=== PATIENT | male | born 1980 | race Caucasian/White ===

== ENCOUNTER 2020-06-27 16:30 | Observation (INO) | payer MEDICAID, SELFPAY ==
[2020-06-27 16:31] VITALS: BP 133/88; PULSE 114; RESP 15; TEMP 36.8; O2SAT 100; BMI 20.7
--- NOTE | 2020-06-27 16:42 | ED.VIS.GEN ---
History of Present Illness Chief Complaint: Substance Abuse Detail of Chief Complaint: Heroin addiction Informant: Patient Onset: Month(s) Context: Sudden Onset Timing: Continuous Quality: Snorts heroin to manage rheumatoid arthritis pain Location: Not applicable Current Severity: - - Reports tremors, jitteriness and palpitations Maximum Severity: Severe Worsened by: Abstinence Relieved by: Snorting heroin Associated Symptoms: Nausea Narrative: Patient is a 40-year-old male who is present unemployed. He did work for a company in [facility] [place]. He states he lost his job. He was on medication for his rheumatoid arthritis and osteoarthritis. 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 To manage the pain he began snorting heroin. He has not had any alcoholic beverage in years. He does smoke on a daily basis. He has an melissa wrap on his distal right forearm due to swelling. He denies fever, chills or night sweats. He denies ocular, visual or auditory symptoms. He denies cardiac or respiratory symptoms other than the palpitations. He does report nausea without vomiting diarrhea. He does pick at his skin. He last used at 12 noon. Prior similar symptoms: Yes Recent Illness/Hospitalization: No - Past Medical History (1) History of rheumatoid arthritis Status: Acute (2) History of osteoarthritis Status: Acute (3) Heroin use Status: Acute Past Medical History - Allergies and Home Meds Allergies/Adverse Reactions: Allergies No Known Allergies Allergy (Verified 06/27/20 16:31) Primary Care Physician: E[facility] Doctor,Out of [NON-STAFF] - Prior records reviewed: No Surgical History: no surgical history Lives: Alone, Homeless Smoking Status: Heavy Smoker (>10/day) Alcohol: Sober Drugs: Heroin Review of Systems General: Denies: Chills, Fever, Sweats Eyes: Denies: Visual changes - bilaterally, Diplopia ENT: Denies: Rhinorrhea, Sore throat Cardiovascular: Reports: Palpitations. Denies: Chest pain, Heart racing, -, - Respiratory: Denies: Dyspnea, Cough, Dyspnea on exertion Gastrointestinal: Reports: Nausea. Denies: Abdominal pain, Vomiting, Diarrhea, Constipation, Melena, Hematochezia, -, - Genitourinary: Denies: Dysuria, Hematuria, Frequency Musculoskeletal: Denies: Back pain, Extremity Pain Skin: Reports: Wounds. Denies: Rash Neurological: Denies: Headache, Weakness, Numbness Hematologic: Denies: Easy bruising, Easy bleeding Physical Exam Vital Signs/Narrative: Vital Signs Temp Pulse Resp BP Pulse Ox 06/27/20 16:31 98.3 F 114 H 15 133/88 H 100 Inital Vital Signs reviewed: Yes General: Well nourished, Well developed, - - Patient appears anxious Head: Normocephalic, Atraumatic Eyes: Perrl, EOMI. Negative for: Pale conjunctiva, Scleral icterus Neck: Supple, Nontender, No lymphadenopathy, No JVD Cardiovascular: Regular rhythm, No murmurs, Normal S1, Normal S2, Tachycardia Respiratory: No distress, CTA bilaterally, Chest nontender Abdomen: Soft, Nontender, Nondistended, Normal bowel sounds Back: Nontender, Normal Inspection Extremities: Nontender, No edema Skin: Normal color, - - Skin lesions due to picking and itching. Neurological: Alert, Oriented x3, Cranial nerves II-XII grossly intact, Normal Strength, Normal Sensation Psychological: Normal affect Diagnostic/Tx/Re-eval Laboratory Results 06/27/20 06/27/20 17:00 17:00 WBC 5.5 RBC 4.63 Hgb 13.7 Hct 39.0 L MCV 84.2 MCH 29.6 MCHC 35.1 RDW Std Deviation 41.1 RDW Coeff of Stephan 13.3 Plt Count 206 MPV 8.7 Immature Gran % (Auto) 0.200 Neut % (Auto) 55.8 Lymph % (Auto) 36.1 [place] % (Auto) 7.2 Eos % (Auto) 0.2 Baso % (Auto) 0.5 Absolute Neuts (auto) 3.1 Absolute Lymphs (auto) 1.99 Nucleated RBC % 0 Sodium 141 Potassium 3.5 Chloride 106 Carbon Dioxide 31.0 Anion Gap 4 L BUN 12 Creatinine 1.19 Estim Creat Clear Calc 77.76 Est GFR (MDRD) Af Amer 87 Est GFR (MDRD) Non-Af 72 BUN/Creatinine Ratio 10.1 Glucose 100 Calcium 8.7 Total Bilirubin 0.50 AST 12 L ALT 16 Alkaline Phosphatase 75 Total Protein 6.8 Albumin 3.7 Globulin 3.1 Albumin/Globulin Ratio 1.2 Blood work is essentially unremarkable. Alcohol level and tox screen are pending at time of admission. - Rhythm Strip Rhythm Strip: Sinus Tach Rate: 110 - Medical Decision Making She was treated with Ativan for his anxiety. Appropriate blood work was obtained for admission to detox. He states he was in contact with a woman at [facility]. He misplaced her name and phone number. He was instructed to come to the emergency department. ED Disposition - Plan for ED Patient: Referrals: [facility] Doctor,Out of [NON-STAFF] -
[2020-06-27] MEDS: LORazepam 2 MG/ML Syringe 0.5 MG IV (17:18)
[2020-06-27 17:24] LABS: Absolute Lymphocyte Count 1.99 X10^3/uL (0.83-4.51); Absolute Neutrophil Count 3.1 X10^3/uL (2.0-7.7); Basophil# 0.03 X10^3/uL; Basophil% 0.5 % (0-1); Eosinophil# 0.01 X10^3/uL; Eosinophils% 0.2 % (0-5); Hemoglobin 13.7 g/dL (13.0-16.5); Lymphocyte # 1.99 X10^3/ul (4.0); Lymphocyte % 36.1 % (19-41); Mean Corp Hgb Conc 35.1 g/dL (32-36); Mean Corpuscular Hgb 29.6 pg (27.0-32.0); Mean Corpuscular Volume 84.2 fL (80-94); Mean Platelet Vol. 8.7 fl (6.2-12.0); Monocyte% 7.2 % (0-10); NRBC Flagged by Analyzer 0 % (0-5); Neutrophil # 3.08 X10^3/uL (2.7-7.7); Neutrophil % 55.8 % (47-70); Platelet Count 206 K/mm3 (150-450); RBC Distribution Width CV 13.3 % (11.6-14.6); RBC Distribution Width SD 41.1 fl (35.1-43.9); Red Blood Count 4.63 M/mm3 (4.6-6.2); White Blood Count 5.5 K/mm3 (4.4-11.0)
[2020-06-27 17:26] LABS: ALB/GLOB Ratio 1.2 RATIO (0.9-2.4); AST(SGOT) 12 U/L (15-37); Alanine Aminotransfer ALT/SGPT 16 U/L (16-61); Albumin, Serum 3.7 g/dL (3.2-5.0); Alkaline Phosphatase 75 U/L (45-117); Anion Gap 4 (5-15); BUN 12 mg/dL (7-18); BUN/Creat Ratio 10.1 RATIO (10-20); Calcium,Total 8.7 mg/dL (8.5-10.1); Chloride 106 mmol/L (98-107); Creatinine, Serum 1.19 mg/dL (0.70-1.30); EST Glomerular Filtration Rate 72 mL/min (>60); Est Glom Filt Rate - Afr Amer 87 mL/min (>60); Estimated Creatinine Clearance 77.76 ml/min; Globulin 3.1 g/dL (2.2-4.2); Glucose 100 mg/dL (74-106); Potassium 3.5 mmol/L (3.5-5.1); Protein, Total 6.8 g/dL (6.4-8.2); Sodium Level 141 mmol/L (136-145)
[2020-06-27 17:49] VITALS: BP 128/74; PULSE 101; RESP 18; TEMP 36.1; O2SAT 99
[2020-06-27 17:50] VITALS: BMI 20.7
--- NOTE | 2020-06-27 17:50 | HP.PCM_ITS ---
<Jaylen Alvarado PA - Last Filed: 06/27/20 17:50> Problem List (1) Opiate withdrawal Status: Acute (2) History of rheumatoid arthritis Status: Chronic History of Present Illness Date of Admission: 06/27/20 Chief Complaint: opiate withdrawal The patient is a 40 year old M with pmhx of rheumatoid arthritis who presents to the ER with opiate withdrawal and request for assistance with detox. The patient has been using heroin for about 1 year. He states he started using to help with pain control after he lost his job/medical coverage and could no longer see his RA doctor or get his prescription medications for RA. He states he snorts heroin approx 0.5 grams per day. Last use was about noon today. He occasionally uses meth to stay awake. He states he never has used IV as he is afraid of needles. No benzo or alcohol use. He smokes about 1 ppd. He plans to follow up with [facility] as an outpatient upon discharge. Current withdrawal symptoms include all over body aches, nauesa, loose stools, restlessness, runny eyes and nose. [] Past Medical History Past Medical History (Chronic Problems): Chronic Problems History of rheumatoid arthritis (Chronic) Allergies No Known Allergies Allergy (Verified 06/27/20 16:31) Home Medications: Ambulatory Orders Medication Instructions Recorded Cholecalciferol (Vitd3)/Vit K2 1 ea PO DAILY PRN PRN 06/27/20 [Dosoquin Tablet] Prednisone 10 mg PO DAILY 06/27/20 Sulindac 200 mg PO BID PRN PRN 06/27/20 Tofacitinib Citrate [Xeljanz] 5 mg PO BID 06/27/20 Surgical History: rotator cuff repair - right Psychiatric History: No pertinent psych hx Lives: Alone, Homeless Smoking Status: Current every day smoker Tobacco Use: Cigarettes Alcohol: None Drugs: Heroin Review of Systems Constitutional: Denies: Chills, Fever, Weight Change HEENT: Reports: - - runny eyes/nose.. Denies: Head Aches, Sinus Congestion, Sinus Drainage Cardiovascular: Denies: Chest Pain, Light Headedness, Palpitations Respiratory: Denies: Cough, Shortness of Breath, Shortness of breath at rest, Sputum production Gastrointestinal: Reports: Nausea, - - loose stools. Denies: Abdominal Pain, Vomiting Genitourinary: Denies: Dysuria, Frequency, Urgency Musculoskeletal: Reports: Joint Pain, Muscle pain. Denies: Joint swelling Skin: Denies: Lesions, Rash, Wounds Neurological: Denies: Numbness, Tingling, Focal weakness Psychiatric: Denies: Anxiety, Depression, Homicidal Ideations, Suicidal Ideations Hematologic/ Lymphatic: Denies: Easy Bruising, Easy Bleeding VTE Information - Inpt Only VTE Present on Admission: No VTE Mechan Device Prophylaxis: None VTE Pharm Prophylaxis ordered?: No Reason prophylaxis not ordered:: Procedure Not Indicated Patient Problems: Active and Suspected Problems Opiate withdrawal (Acute) - Physical Exam Vitals/I&O's: Vital Signs Temp Pulse Resp BP Pulse Ox 97 F L 101 H 18 128/74 H 99 06/27/20 17:49 06/27/20 17:49 06/27/20 17:49 06/27/20 17:49 06/27/20 17:49 Oxygen Delivery Method Room Air Weight: 148 lb 5.938 oz Body Mass Index (BMI) 20.7 General: Alert, Oriented x3, Cooperative, Lethargic HEENT: Atraumatic, PERRLA, EOMI, Normocephalic Neck: Supple, No JVD, Negative Carotid Bruits Lungs: Clear to auscultation, Normal air movement Cardiovascular: Regular rate, No murmurs Abdomen: Bowel Sounds Present, Soft, Non Tender Extremities: No edema, Capillary Refill Less than 3 Seconds Skin: No rashes, No breakdown Musculoskeletal: No Tenderness to Palpation of Joints or Extremities Neurological: Cranial nerves II-XII grossly intact Psych/Mental Status: Normal Affect, Appropriate, Alert and oriented to time, place, person, mood and affect Laboratory Results 06/27/20 17:00: WBC 5.5, RBC 4.63, Hgb 13.7, Hct 39.0 L, MCV 84.2, MCH 29.6, MCHC 35.1, RDW Std Deviation 41.1, RDW Coeff of Stephan 13.3, Plt Count 206, MPV 8.7, Immature Gran % (Auto) 0.200, Neut % (Auto) 55.8, Lymph % (Auto) 36.1, [place] % (Auto) 7.2, Eos % (Auto) 0.2, Baso % (Auto) 0.5, Absolute Neuts (auto) 3.1, Absolute Lymphs (auto) 1.99, Nucleated RBC % 0 06/27/20 17:00: Sodium 141, Potassium 3.5, Chloride 106, Carbon Dioxide 31.0, Anion Gap 4 L, BUN 12, Creatinine 1.19, Estim Creat Clear Calc 77.76, Est GFR (MDRD) Af Amer 87, Est GFR (MDRD) Non-Af 72, BUN/Creatinine Ratio 10.1, Glucose 100, Calcium 8.7, Total Bilirubin 0.50, AST 12 L, ALT 16, Alkaline Phosphatase 75, Total Protein 6.8, Albumin 3.7, Globulin 3.1, Albumin/Globulin Ratio 1.2 06/27/20 17:00: Ethyl Alcohol Pending Assessment/Plan All Active Problems History of osteoarthritis (Acute) Heroin use (Acute) Opiate withdrawal (Acute) 1. Heroin abuse with withdrawal - 0.5 g / day - snorts. occasional meth. denies etoh/benzos. Using approx 1 year for self medicating for pain 2/2 RA. Tox pending, EtOH level 8.0. Initiate subutex taper. He states he has been on subuxone in the past. 2. Nicotine abuse - 1 ppd smoker - nicotine patch ordered. 3. RA - not on any maintenance meds at this time. Needs PCP and probably referral to rheumatology however he states he has no medical coverage while he waits to be approved for disability. DVT ppx: early ambulation [facility] plannin referral - pt plans for outpatient follow up. This patient was seen by Jaylen Alvarado PA-C under the supervision of Doctor Barrett. <Kari Hyde - Last Filed: 06/27/20 19:32> History of Present Illness Date of Admission: 06/27/20 I agree with the above and the following is a refection of my independent history and PE. The patient is a 40 year old M with PMH of RA who has been off of his biologics 2/2 insurance issues and has been snorting heroin for about 1 year for pain mgt. He presents for detox. He uses about 1/2 gm daily but never uses IVD. His last use was today at noon and he is very sleepy upon my exam. He admits to 1 PPD tobacco abuse as well and would like a patch. 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 Past Medical History Allergies No Known Allergies Allergy (Verified 06/27/20 16:31) Lives: Alone, Homeless Smoking Status: Current every day smoker Tobacco Use: Cigarettes - 1 PPD Alcohol: None Drugs: Heroin - 0.5 gms/day--> snorts, never IVDU Review of Systems Constitutional: Reports: Chills, Weakness, Fatigue. Denies: Anorexia, Fever, Night Sweats, Malaise, Weight Change HEENT: Reports: -. Denies: Head Aches, Nasal Congestion, Post Nasal Drip, Sinus Congestion, Sinus Drainage, Sore Throat, Visual Changes Cardiovascular: Denies: Chest Pain, Claudication, Chest Pressure, Chest Tightness, Edema, Heaviness, Light Headedness, Orthopnea, Palpitations, Paroxysmal Noc. Dyspnea Respiratory: Denies: Cough, Shortness of Breath, Shortness of breath at rest, Shortness of breath upon exertion, Sputum production Gastrointestinal: Reports: Diarrhea, Nausea, -. Denies: Abdominal Pain, Constipation, Dyspepsia Genitourinary: Denies: Dysuria, Frequency, Hematuria, Urgency Musculoskeletal: Reports: Back Pain, Joint Pain, Joint stiffness, Joint Te nderness, Muscle pain, Neck Pain. Denies: Joint swelling Skin: Denies: Dryness, Jaundice, Lesions, Pruritis, Rash, Skin Changes, Wounds Psychiatric: Denies: Anxiety, Depression, Homicidal Ideations, Suicidal Ideations Endocrine: Denies: Change in Body Habitus, Heat/ Cold Intolerance, Polydipsia, Polyuria Hematologic/ Lymphatic: Denies: Adenopathy, Anemia, Easy Bruising, Easy Bleeding, Petechiae, Purpura - Physical Exam Vitals/I&O's: Vital Signs Temp Pulse Resp BP Pulse Ox 97.8 F 92 14 104/57 L 99 06/27/20 18:07 06/27/20 18:07 06/27/20 18:07 06/27/20 18:07 06/27/20 18:07 Oxygen Delivery Method Room Air Weight: 67.3 kg Body Mass Index (BMI) 20.7 General: Alert, Oriented x3, Cooperative, No apparent distress, Lethargic, - - sleepy middle aged male, non-toxic and calm, thin HEENT: Atraumatic, PERRLA, EOMI, Normocephalic, EAC Clear Oral: Moist Mucosa, No Gingival or Mucosal Lesions/ Ulcerations, - - fair dentition Neck: Supple, No JVD, Negative Carotid Bruits, Trachea Midline, Thyroid Normal Size and Texture Lungs: Clear to auscultation, Normal air movement, No rhonchi, No wheeze, No rales Cardiovascular: Regular rate, Regular Rhythm, Normal S1, Normal S2, No murmurs, No Ectopic Activity, No rub noted, No Gallop Abdomen: Bowel Sounds Present, Soft, Non Tender, Non-Distended Extremities: No clubbing, No cyanosis, No edema, Peripheral Pulses Normal Neurological: Cranial nerves II-XII grossly intact, Deep Tendon Reflexes 2+/4 and Symmetrical, Neuro grossly intact, Motor Exam 5/5 strength throughout, Muscle tone normal, Sensory exam intact to light touch and pain, Coordination normal Psych/Mental Status: Appropriate, Flat Affect Laboratory Results 06/27/20 17:00: WBC 5.5, RBC 4.63, Hgb 13.7, Hct 39.0 L, MCV 84.2, MCH 29.6, MCHC 35.1, RDW Std Deviation 41.1, RDW Coeff of Stephan 13.3, Plt Count 206, MPV 8.7, Immature Gran % (Auto) 0.200, Neut % (Auto) 55.8, Lymph % (Auto) 36.1, [place] % (Auto) 7.2, Eos % (Auto) 0.2, Baso % (Auto) 0.5, Absolute Neuts (auto) 3.1, Absolute Lymphs (auto) 1.99, Nucleated RBC % 0 06/27/20 17:00: Sodium 141, Potassium 3.5, Chloride 106, Carbon Dioxide 31.0, Anion Gap 4 L, BUN 12, Creatinine 1.19, Estim Creat Clear Calc 77.76, Est GFR (MDRD) Af Amer 87, Est GFR (MDRD) Non-Af 72, BUN/Creatinine Ratio 10.1, Glucose 100, Calcium 8.7, Total Bilirubin 0.50, AST 12 L, ALT 16, Alkaline Phosphatase 75, Total Protein 6.8, Albumin 3.7, Globulin 3.1, Albumin/Globulin Ratio 1.2 06/27/20 17:00: Ethyl Alcohol 8.0 06/27/20 17:30: Urine Opiates Screen POSITIVE H, Urine Methadone Screen NEGATIVE, Ur Barbiturates Screen NEGATIVE, Ur Phencyclidine Scrn NEGATIVE, Ur Amphetamines Screen POSITIVE H, U Methamphetamin-MDMA POSITIVE H, U Benzodiazepines Scrn POSITIVE H, Urine Cocaine Screen POSITIVE H, U Cannabinoids Screen NEGATIVE, Ur Drug Screen Comment Current Medications Acetaminophen (Tylenol) 500 mg PO Q4H PRN PRN PRN Reason: Temp > 100.4 F Al Hydroxide/Mg Hydroxide (Mylanta Ii) 30 ml PO Q6H PRN PRN PRN Reason: dyspesia Bisacodyl (Dulcolax) 10 mg RECTAL DAILY PRN PRN Reason: Constipation Buprenorphine HCl (Buprenorphine Hcl) 0 mg SL Q8H POOJA; Taper Stop: 06/30/20 17:59 Clonidine (Catapres) 0.1 mg PO Q8H PRN PRN PRN Reason: RESTLESSNESS Dicyclomine HCl (Bentyl) 20 mg PO Q6H PRN PRN PRN Reason: Abdominal Discomfort Gabapentin (Neurontin) 300 mg PO Q8H PRN PRN PRN Reason: moderate to severe anxiety Last Admin: 06/27/20 18:56 Dose: 300 mg Documented by: Hydroxyzine Pamoate (Vistaril Pamoate Capsule) 50 mg PO Q6H PRN PRN PRN Reason: mild anxiety Ibuprofen (Motrin) 600 mg PO Q8H PRN PRN PRN Reason: Pain Score 1-10/10 Loperamide HCl (Imodium) 2 mg PO Q4H PRN PRN PRN Reason: LOOSE STOOLS Methocarbamol (Methocarbamol) 1,500 mg PO Q6H PRN PRN PRN Reason: MUSCLE SPASM Nicotine (Nicoderm Cq (Pbkc)) 21 mg TRANSDERM. DAILY [facility] Last Admin: 06/27/20 18:55 Dose: 21 mg Documented by: Nutritional Formula (Lactose Free) (Ensure Enlive) 120 ml PO 4X/DAY [facility] Last Admin: 06/27/20 18:56 Dose: 120 ml Documented by: Ondansetron HCl (Zofran) 8 mg PO Q8H PRN PRN PRN Reason: NAUSEA Senna (Senokot) 2 tablet PO QHS PRN PRN PRN Reason: Constipation Trazodone HCl (Desyrel) 100 mg PO QHS PRN PRN PRN Reason: INSOMNIA Assessment/Plan I agree with the above and the following is a refection of my independent history and PE. ASSESSMENT Acute Heroin Withdrawal (intranasal use) RA Polysubstance Abuse (tox + for cocaine, meth, benzo and narcotics) Tachycardia Nicotine Abuse PLAN -opiate w/d orderset -f/u at [facility] -nicotine patch -will need rheum f/u -check hepatitis and HIV status Inpatient E&M: 69505 Init Hosp L2
[2020-06-27 18:07] VITALS: BP 104/57; PULSE 92; RESP 14; TEMP 36.6; O2SAT 99; BMI 20.7
[2020-06-27 18:09] LABS: Amphetamine Urine VISTA POSITIVE (<1000 ng/mL); Barbiturate Urine VISTA NEGATIVE (< 200 ng/mL); Benzodiazepine Urine VISTA POSITIVE (< 200 ng/mL); Cocaine Urine VISTA POSITIVE (< 300 ng/mL); Ecstacy Urine VISTA POSITIVE (< 500 ng/mL); Methadone Urine VISTA NEGATIVE (< 300 ng/mL); PCP Urine VISTA NEGATIVE (< 25 ng/mL); THC Urine VISTA NEGATIVE (< 50 ng/mL); Vista UDS pH Range 6
--- NOTE | 2020-06-27 18:12 | CM.ED ---
SOCIAL WORK Reason for Consult: Substance Abuse Patient requesting detox from heroin. Nursing completed [facility] agreement with patient. Call to [facility], spoke with Ely to update on admission. Per Ely, she or Anum will be in tomorrow to complete assessment. Plan: Admit to [facility] Alfonso, DUMPSTER DRIVER, REFRIGERATION PLANT OPERATOR
[2020-06-27] MEDS: Gabapentin 300 MG Capsule PO (18:56)
[2020-06-27 20:24] VITALS: BP 103/78; PULSE 94; RESP 18; TEMP 36.6; O2SAT 100
[2020-06-27 20:36] VITALS: RESP 18
[2020-06-27 22:29] VITALS: BP 99/76; PULSE 88; RESP 18; TEMP 36.7; O2SAT 100
[2020-06-27] MEDS: Buprenorphine HCl 2 MG TAB.SUBL SL (23:23)
[2020-06-28] VITALS (10 sets, daily range): BP systolic 110–125; BP diastolic 62–80; PULSE 83–95; RESP 16–18; TEMP 36.5–37; O2SAT 98–100; BMI 20.7
[2020-06-28] MEDS: Buprenorphine HCl 2 MG TAB.SUBL SL ×3 (06:33→22:31)
[2020-06-28] MEDS: cloNIDine HCl 0.1 MG Tablet PO (09:57)
[2020-06-28] MEDS: Methocarbamol 750 MG Tablet 1500 MG PO (09:57)
--- NOTE | 2020-06-28 10:48 | PCM.NTREPORT ---
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 UBW: 91.8 kg - wt loss of 26.6% x 1 yr d/t drug use and homeless - was not able to eat every day. Has nonpitting R arm edema. Ate good breakfast this am - agreeable to ONS w/ medpass for increased nutrition. Pt would like to regain wt, but does not want additional ONS at this time. [ End ] - Nutrition Diagnosis Problem / Etiology / Signs & Symptoms (PES):: Pt with malnutrition x 1 yr r/t homeless, drug use and unable to eat daily AEB decreased po intake / wt loss / fat/muscle loss. [ End ] Evidence of Malnutrition Exists:: Yes Severe PCM:: Social & Environmental circumstances - Nutrition Intervention Nutrition Prescription:: [id number] ori / 65-75 gm pro / day - Food / Nutrient Delivery Interventions Summary of nutrition intervention:: Continue Regular diet with 3 snacks per day and ONS w/ medpass Nutrition education provided?: No - MNT Monitoring Further MNT monitoring and evaluation required?: Yes MNT Follow-up in:: 3-5 days - please call RD/LD if questions or concerns x [phone]
--- NOTE | 2020-06-28 10:56 | ADDICTION ---
This junior technical writer met with patient in his room to conduct ASAM, MSE and DUDIT assessments. Patient was alert and oriented x4 and presented with depressed mood and congruent affect. He declined discharge planning stating that he can do this myself. He requested transportation home, this junior technical writer called [facility] who stated that someone will need to call the member services number ( ) to set up discharge transportation on his day of discharge. He plans to discharge on 06/30/2020. This junior technical writer informed [facility] of this for her to follow up with nursing. He appears appropriate for the 4.0 LOC aeb his use history, frequency, duration and history of severe withdrawal sx.
--- NOTE | 2020-06-28 12:25 | PN_ITS ---
<Jaylen Alvarado - Last Filed: 06/28/20 12:25> Patient Problems: Active and Suspected Problems Opiate withdrawal (Acute) Reason for Visit: opiate withdrawal Subjective: pt resting comfortably in bed NAD. Denies tremor, anxiety, restlessness, pain, fever chills, runny eyes/nose, nausea / vomiting/diarrhea Vitals/I&O's: Vital Signs Temp Pulse Resp BP Pulse Ox 98.5 F 84 18 123/77 H 98 06/28/20 09:43 06/28/20 11:54 06/28/20 09:43 06/28/20 09:43 06/28/20 09:43 Oxygen Delivery Method Room Air Weight: 148 lb 5.938 oz Body Mass Index (BMI) 20.7 Intake and Output for Last 24 Hours 06/26/20 06/27/20 06/28/20 23:59 23:59 23:59 Intake Total 600 / 600 400 / 400 Balance 600 / 600 400 / 400 General: Alert, Oriented x3, Cooperative HEENT: Atraumatic, PERRLA, EOMI, Normocephalic Neck: Supple, No JVD, Negative Carotid Bruits Lungs: Clear to auscultation, Normal air movement Cardiovascular: Regular rate, No murmurs Abdomen: Bowel Sounds Present, Soft, Non Tender Extremities: No edema, Capillary Refill Less than 3 Seconds Skin: No rashes, No breakdown Musculoskeletal: No Tenderness to Palpation of Joints or Extremities Neurological: Cranial nerves II-XII grossly intact Psych/Mental Status: Normal Affect, Appropriate, Alert and oriented to time, place, person, mood and affect Laboratory Results 06/27/20 17:00: WBC 5.5, RBC 4.63, Hgb 13.7, Hct 39.0 L, MCV 84.2, MCH 29.6, MCHC 35.1, RDW Std Deviation 41.1, RDW Coeff of Stephan 13.3, Plt Count 206, MPV 8.7, Immature Gran % (Auto) 0.200, Neut % (Auto) 55.8, Lymph % (Auto) 36.1, Dukes % (Auto) 7.2, Eos % (Auto) 0.2, Baso % (Auto) 0.5, Absolute Neuts (auto) 3.1, Absolute Lymphs (auto) 1.99, Nucleated RBC % 0 06/27/20 17:00: Sodium 141, Potassium 3.5, Chloride 106, Carbon Dioxide 31.0, Anion Gap 4 L, BUN 12, Creatinine 1.19, Estim Creat Clear Calc 77.76, Est GFR (MDRD) Af Amer 87, Est GFR (MDRD) Non-Af 72, BUN/Creatinine Ratio 10.1, Glucose 100, Calcium 8.7, Total Bilirubin 0.50, AST 12 L, ALT 16, Alkaline Phosphatase 75, Total Protein 6.8, Albumin 3.7, Globulin 3.1, Albumin/Globulin Ratio 1.2 06/27/20 17:00: Ethyl Alcohol 8.0 06/27/20 17:30: Urine Opiates Screen POSITIVE H, Urine Methadone Screen NEGATIVE, Ur Barbiturates Screen NEGATIVE, Ur Phencyclidine Scrn NEGATIVE, Ur Amphetamines Screen POSITIVE H, U Methamphetamin-MDMA POSITIVE H, U Benzodiazepines Scrn POSITIVE H, Urine Cocaine Screen POSITIVE H, U Cannabinoids Screen NEGATIVE, Ur Drug Screen Comment Current Medications Acetaminophen (Tylenol) 500 mg PO Q4H PRN PRN PRN Reason: Temp > 100.4 F Al Hydroxide/Mg Hydroxide (Mylanta Ii) 30 ml PO Q6H PRN PRN PRN Reason: dyspesia Bisacodyl (Dulcolax) 10 mg RECTAL DAILY PRN PRN Reason: Constipation Buprenorphine HCl (Buprenorphine Hcl) 4 mg SL Q8H POOJA; Taper Stop: 06/30/20 22:59 Last Admin: 06/28/20 06:33 Dose: 4 mg Documented by: Clonidine (Catapres) 0.1 mg PO Q8H PRN PRN PRN Reason: RESTLESSNESS Last Admin: 06/28/20 09:57 Dose: 0.1 mg Documented by: Dicyclomine HCl (Bentyl) 20 mg PO Q6H PRN PRN PRN Reason: Abdominal Discomfort Gabapentin (Neurontin) 300 mg PO Q8H PRN PRN PRN Reason: moderate to severe anxiety Last Admin: 06/27/20 18:56 Dose: 300 mg Documented by: Hydroxyzine Pamoate (Vistaril Pamoate Capsule) 50 mg PO Q6H PRN PRN PRN Reason: mild anxiety Ibuprofen (Motrin) 600 mg PO Q8H PRN PRN PRN Reason: Pain Score 1-10/10 Loperamide HCl (Imodium) 2 mg PO Q4H PRN PRN PRN Reason: LOOSE STOOLS Methocarbamol (Methocarbamol) 1,500 mg PO Q6H PRN PRN PRN Reason: MUSCLE SPASM Last Admin: 06/28/20 09:57 Dose: 1,500 mg Documented by: Nicotine (Nicoderm Cq (Pbkc)) 21 mg TRANSDERM. DAILY [facility] Last Admin: 06/28/20 09:55 Dose: 21 mg Documented by: Nutritional Formula (Lactose Free) (Ensure Enlive) 120 ml PO 4X/DAY [facility] Last Admin: 06/28/20 09:55 Dose: 120 ml Documented by: Ondansetron HCl (Zofran) 8 mg PO Q8H PRN PRN PRN Reason: NAUSEA Senna (Senokot) 2 tablet PO QHS PRN PRN PRN Reason: Constipation Trazodone HCl (Desyrel) 100 mg PO QHS PRN PRN PRN Reason: INSOMNIA STROKE Vital Signs/Narrative: Vital Signs Temp Pulse Resp BP Pulse Ox 06/28/20 11:54 84 06/28/20 09:43 98.5 F 89 18 123/77 H 98 Medical Necessity - Tobacco Use Smoking Status: Current every day smoker Tobacco Use: Cigarettes Assessment/Plan All Active Problems History of osteoarthritis (Acute) Heroin use (Acute) Opiate withdrawal (Acute) 1. Heroin abuse with withdrawal - 0.5 g / day - denies withdrawal symptoms today. Using approx 1 year for self medicating for pain 2/2 RA. Continue subutex taper. He states he has been on suboxone in the past. -Tox screen + for opiates, amphetamines, meth, benzos. etoh 8.0 2. Nicotine abuse - 1 ppd smoker - nicotine patch ordered. 3. RA - not on any maintenance meds at this time. Needs PCP and probably referral to rheumatology however he states he has no medical coverage while he waits to be approved for disability. DVT ppx: early ambulation [place] plannin referral - pt plans for outpatient follow up. This patient was seen by Jaylen Alvarado PA-C under the supervision of Doctor Aaron <Norman Walker - Last Filed: 06/28/20 13:45> Subjective: Denies any abdominal cramps nor restless legs. Vitals/I&O's: Vital Signs Temp Pulse Resp BP Pulse Ox 36.9 C 84 18 123/77 H 98 06/28/20 09:43 06/28/20 11:54 06/28/20 09:43 06/28/20 09:43 06/28/20 09:43 Oxygen Delivery Method Room Air Weight: 67.3 kg Body Mass Index (BMI) 20.7 Intake and Output for Last 24 Hours 06/26/20 06/27/20 06/28/20 23:59 23:59 23:59 Intake Total 600 / 600 400 / 400 Balance 600 / 600 400 / 400 General: Alert, Cooperative HEENT: Atraumatic, Normocephalic Lungs: Clear to auscultation, Normal air movement Cardiovascular: Regular rate, No murmurs Abdomen: Bowel Sounds Present, Soft, Non Tender Extremities: No edema, No Calf Tenderness Skin: No rashes, No breakdown Psych/Mental Status: Normal Affect, Appropriate Laboratory Results 06/27/20 17:00: WBC 5.5, RBC 4.63, Hgb 13.7, Hct 39.0 L, MCV 84.2, MCH 29.6, MCHC 35.1, RDW Std Deviation 41.1, RDW Coeff of Stephan 13.3, Plt Count 206, MPV 8.7, Immature Gran % (Auto) 0.200, Neut % (Auto) 55.8, Lymph % (Auto) 36.1, Dukes % (Auto) 7.2, Eos % (Auto) 0.2, Baso % (Auto) 0.5, Absolute Neuts (auto) 3.1, Absolute Lymphs (auto) 1.99, Nucleated RBC % 0 06/27/20 17:00: Sodium 141, Potassium 3.5, Chloride 106, Carbon Dioxide 31.0, Anion Gap 4 L, BUN 12, Creatinine 1.19, Estim Creat Clear Calc 77.76, Est GFR (MDRD) Af Amer 87, Est GFR (MDRD) Non-Af 72, BUN/Creatinine Ratio 10.1, Glucose 100, Calcium 8.7, Total Bilirubin 0.50, AST 12 L, ALT 16, Alkaline Phosphatase 75, Total Protein 6.8, Albumin 3.7, Globulin 3.1, Albumin/Globulin Ratio 1.2 06/27/20 17:00: Ethyl Alcohol 8.0 09/17/20 17:30: Urine Opiates Screen POSITIVE H, Urine Methadone Screen NEGATIVE, Ur Barbiturates Screen NEGATIVE, Ur Phencyclidine Scrn NEGATIVE, Ur Amphetamines Screen POSITIVE H, U Methamphetamin-MDMA POSITIVE H, U Benzodiazepines Scrn POSITIVE H, Urine Cocaine Screen POSITIVE H, U Cannabinoids Screen NEGATIVE, Ur Drug Screen Comment Current Medications Acetaminophen (Tylenol) 500 mg PO Q4H PRN PRN PRN Reason: Temp > 100.4 F Al Hydroxide/Mg Hydroxide (Mylanta Ii) 30 ml PO Q6H PRN PRN PRN Reason: dyspesia Bisacodyl (Dulcolax) 10 mg RECTAL DAILY PRN PRN Reason: Constipation Buprenorphine HCl (Buprenorphine Hcl) 4 mg SL Q8H POOJA; Taper Stop: 06/30/20 22:59 Last Admin: 06/28/20 06:33 Dose: 4 mg Documented by: Clonidine (Catapres) 0.1 mg PO Q8H PRN PRN PRN Reason: RESTLESSNESS Last Admin: 06/28/20 09:57 Dose: 0.1 mg Documented by: Dicyclomine HCl (Bentyl) 20 mg PO Q6H PRN PRN PRN Reason: Abdominal Discomfort Gabapentin (Neurontin) 300 mg PO Q8H PRN PRN PRN Reason: moderate to severe anxiety Last Admin: 06/27/20 18:56 Dose: 300 mg Documented by: Hydroxyzine Pamoate (Vistaril Pamoate Capsule) 50 mg PO Q6H PRN PRN PRN Reason: mild anxiety Ibuprofen (Motrin) 600 mg PO Q8H PRN PRN PRN Reason: Pain Score 1-10/10 Loperamide HCl (Imodium) 2 mg PO Q4H PRN PRN PRN Reason: LOOSE STOOLS Methocarbamol (Methocarbamol) 1,500 mg PO Q6H PRN PRN PRN Reason: MUSCLE SPASM Last Admin: 06/28/20 09:57 Dose: 1,500 mg Documented by: Nicotine (Nicoderm Cq (Pbkc)) 21 mg TRANSDERM. DAILY POOJA Last Admin: 06/28/20 09:55 Dose: 21 mg Documented by: Nutritional Formula (Lactose Free) (Ensure Enlive) 120 ml PO 4X/DAY [facility] Last Admin: 06/28/20 09:55 Dose: 120 ml Documented by: Ondansetron HCl (Zofran) 8 mg PO Q8H PRN PRN PRN Reason: NAUSEA Senna (Senokot) 2 tablet PO QHS PRN PRN PRN Reason: Constipation Trazodone HCl (Desyrel) 100 mg PO QHS PRN PRN PRN Reason: INSOMNIA STROKE Vital Signs/Narrative: Vital Signs Pulse 06/28/20 11:54 84 Assessment/Plan Patient seen and examined independently. Data reviewed. I agree with the above note by the physician assistant financial accountant. 1. Acute opiate withdrawal: Doing fairly well at this time. Continue with buprenorphine taper. Afterwards, the patient's plan is to manage his withdrawal symptoms on his own and is currently declining any additional resources upon nimisha hernandez. Discussed with social work who has provided him with information on other resources. Patient to complete his taper on the and then afterwards he will be discharged home. Inpatient E&M: 28607 Subs Hosp L2
--- NOTE | 2020-06-28 13:58 | CHAPLAIN ---
Type of Pastoral Visit _x__ Initial Visit ___ Follow-up Visit ___ On-call Visit ___ General Patient Visit ___ Spiritual Assessment ___ Family Conference ___ Bereavement ___ Rapid Response ___ Code Blue ___ Other (describe below) Pastoral Care Referral From _x__ Patient ___ Family ___ Nurse ___ Physician ___ Healthcare Project Manager ___ Facilities Custodian ___ Other (describe below) Sacrament/Intervention ___ Active listening ___ Anointing ___ Buddhist ___ Bereavement ___ Communion ___ Asiya exploration ___ ___ Life review _x__ Prayer ___ Reconciliation ___ Sacrament of Sick _x__ Supportive presence ___ Wedding ___ Other (describe below) Pastoral Comments On third attempt to see patient he did awaken when commissioner conservation of resources entered the room; introduced self and role; patient requested 15 minutes so he could 'wake up'; returned to room and pt appeared to be sleeping but awoke to his name; offered support and presence; pt was pleasant and admitted that he needed 'to be done with all this (addiction)'; pt states that he is doing ok; pt appeared with difficulty staying awake; pt welcomed prayer and asked this commissioner conservation of resources to 'return tomorrow'; however this commissioner conservation of resources will be off duty and unable to follow up
--- NOTE | 2020-06-28 14:14 | CASEMGMT ---
Social Work Note Barb from [facility] updated this worker that pt is homeless, sleeping in his car. SW in to speak with pt. SW introduced self and role at [facility]. Pt is sleeping but woke up when this worker entered the room. Pt confirms that he is homeless, sleeping in his car. Pt agreeable to taking housing resources. Pt lives in [facility]. SW provided pt with housing resources and homeless shelters in [facility]. Pt thanked this worker, denied additional needs or concerns at this time. Stacie Mayer SERVICING REP, PERFORATING MACHINE OPERATOR
[2020-06-28 21:20] LABS: HIV - WCH Non-Reactive (Nonreactive); Hepatitis B Surface Antibody Non-Reactive; Hepatitis B Surface Antigen Non-Reactive (Nonreactive); Hepatitis C Antibody Non-Reactive (Nonreactive)
[2020-06-29 02:23] VITALS: BP 117/79; PULSE 87; RESP 16; TEMP 36.8; O2SAT 100
[2020-06-29] MEDS: Buprenorphine HCl 2 MG TAB.SUBL SL (06:19)
[2020-06-29 08:25] VITALS: BP 114/85; PULSE 82; RESP 18; TEMP 36.8; O2SAT 100
--- NOTE | 2020-06-29 09:34 | PCM.DC ---
- Discharge Diagnoses Current Active Problems: Current Active and Chronic Problems Opiate withdrawal (Acute) You will use the following diet at home:: No restrictions Your food should be the consistency of: Regular Your liquids should be the consistency of: Regular/Thin Discharge Activity: Return to Normal Activity Allergies/Adverse Reactions: Allergies No Known Allergies Allergy (Verified 06/27/20 16:31) Medications to take at Discharge Cholecalciferol (Vitd3)/Vit K2 [Dosoquin Tablet] 1 ea PO DAILY PRN PRN 06/27/20 Primary Care Physician: [facility] Doctor,Out of [NON-STAFF] - Please follow up with your Primary Care Physician in: 1-2 weeks Test Results: Test results from this visit will be discussed in further detail at your follow-up appointment, if applicable. Please Follow Up With: 180 program When: Wednesday Proposed Discharge Date: 06/29/20
[2020-06-29 10:32] VITALS: BP 114/85; PULSE 82; RESP 18; TEMP 36.8; O2SAT 100
--- NOTE | 2020-06-29 13:28 | PCM.DC.SUM ---
<Jaylen Alvarado - Last Filed: 06/29/20 13:28> Discharge Date and Diagnosis Date of Admission: 06/27/20 Date of Discharge: 06/29/20 - Primary Discharge Diagnosis Acute Problems: Heroine withdrawal Rheumatoid arthritis Homelessness - Secondary Discharge Diagnosis Chronic Problems: Chronic Problems History of rheumatoid arthritis (Chronic) Hospital Course and Treatment Operations: None Procedures: None Summary of Care Provided: Hospital course: The patient is a 40 year old M with past medical history of rheumatoid arthritis, nicotine abuse, homelessness, who presented to the emergency room request for detox from heroin. The patient had been snorting approximately one half a gram of heroin daily. He denied any intravenous use. He stated that he had started using after he lost his job and medical coverage because he needed something for pain from his rheumatoid arthritis and had no ability to get his prior prescription medications for this. He was admitted to the medical stabilization program. He was placed on Subutex taper. The following day he had no withdrawal symptoms. He stayed 1 additional night and requested discharge the following day, again with no withdrawal symptoms. The patient was discharged home in stable condition and advised to follow-up with the 180 program on Wednesday, follow-up with PCP in 1 to 2 weeks. Also of note while here his tox screen was positive for opiates, benzodiazepines, methamphetamine, cocaine. Hepatitis and HIV screens were nonreactive. This patient was seen by Jaylen Alvarado PA-C under the supervision of Doctor Walker. [] - Physical Exam Vitals/I&O's: Vital Signs Temp Pulse Resp BP Pulse Ox 98.2 F 82 18 114/85 H 100 06/29/20 08:25 06/29/20 08:25 06/29/20 08:25 06/29/20 08:25 06/29/20 08:25 Oxygen Delivery Method Room Air Weight: 148 lb 5.938 oz Body Mass Index (BMI) 20.7 Intake and Output for Last 24 Hours 06/27/20 06/28/20 06/29/20 23:59 23:59 23:59 Intake Total 600 / 600 1200 / 1700 500 / 500 Balance 600 / 600 1200 / 1700 500 / 500 General: Alert, Oriented x3, Cooperative HEENT: Atraumatic, PERRLA, EOMI, Normocephalic Neck: Supple, No JVD, Negative Carotid Bruits Lungs: Clear to auscultation, Normal air movement Cardiovascular: Regular rate, No murmurs Abdomen: Bowel Sounds Present, Soft, Non Tender Extremities: No edema, Capillary Refill Less than 3 Seconds Skin: No rashes, No breakdown Musculoskeletal: No Tenderness to Palpation of Joints or Extremities Neurological: Cranial nerves II-XII grossly intact Psych/Mental Status: Normal Affect, Appropriate, Alert and oriented to time, place, person, mood and affect Laboratory Results 06/27/20 17:00: Hep Bs Antigen Non-Reactive, Hep Bs Antibody Non-Reactive, Hepatitis C Antibody Non-Reactive, HIV 1&2 Antibody Non-Reactive Discharge Diet: Low fat/ Low Cholesterol, 2000 mg Sodium Diet Discharge Activity: Return to Normal Activity Home Medications: Medications to take at Discharge Cholecalciferol (Vitd3)/Vit K2 [Dosoquin Tablet] 1 ea PO DAILY PRN PRN 06/27/20 Primary Care Physician: [facility] Doctor,Out of [NON-STAFF] - Please follow up with your Primary Care Physician in: 1-2 weeks Please Follow Up With: 180 program When: Wednesday Disposition: Home Minutes spent on discharge:: 35 Patient Condition:: Stable Medical Necessity - Tobacco Use Smoking Status: Current every day smoker Tobacco Use: Cigarettes Meaningful Use Info Meaningful Use Diagnoses (Choose all that apply): None applicable <Norman Walker - Last Filed: 06/29/20 13:52> Discharge Date and Diagnosis - Secondary Discharge Diagnosis Chronic Problems: Chronic Problems History of rheumatoid arthritis (Chronic) Hospital Course and Treatment Operations: None Procedures: None Summary of Care Provided: Patient seen and examined independently. Data reviewed. I agree with the above note by the physician payroll human resources assistant. The patient is a 40 year old M presents seeking treatment for opiate withdrawal. Patient was started on the buprenorphine taper as well as additional medications help other somatic complaints. Patient's course was uncomplicated and the plan was for him to continue with the taper through the . However, patient stated that he had to go home today to feel the care for his mother. This was the first that we had heard of it during the course of his admission. Patient states that his sister usually takes care of his mother on certain days and that today was the day that he is to care for his mother. Patient stated that he did not want to seek any treatment outside of the hospital and that he would build to do it on his own as he states that he has done before. He did ask for us to cover for transportation for him back to [place]. Informed her that would likely be his cost but manager rn case said that likely be covered by his insurance company. [] - Physical Exam Vitals/I&O's: Vital Signs Temp Pulse Resp BP Pulse Ox 36.8 C 82 18 114/85 H 100 06/29/20 10:32 06/29/20 10:32 06/29/20 10:32 06/29/20 10:32 06/29/20 10:32 Oxygen Delivery Method Room Air Weight: 67.3 kg Body Mass Index (BMI) 20.7 Intake and Output for Last 24 Hours 06/27/20 06/28/20 06/29/20 23:59 23:59 23:59 Intake Total 600 / 600 1200 / 1700 500 / 500 Balance 600 / 600 1200 / 1700 500 / 500 General: Alert, Cooperative HEENT: Atraumatic, Normocephalic Neck: No Nodes, Trachea Midline Lungs: Clear to auscultation, Normal air movement Cardiovascular: Regular rate, No murmurs Abdomen: Bowel Sounds Present, Soft, Non Tender Extremities: No edema, No Calf Tenderness Skin: No rashes, No breakdown Psych/Mental Status: Normal Affect, Appropriate Laboratory Results 06/27/20 17:00: Hep Bs Antigen Non-Reactive, Hep Bs Antibody Non-Reactive, Hepatitis C Antibody Non-Reactive, HIV 1&2 Antibody Non-Reactive Discharge Diet: Low fat/ Low Cholesterol, 2000 mg Sodium Diet Discharge Activity: Return to Normal Activity Disposition: Home Minutes spent on discharge:: 35 Patient Condition:: Stable Medical Necessity - Tobacco Use Smoking Status: Current every day smoker Tobacco Use: Cigarettes Meaningful Use Info Meaningful Use Diagnoses (Choose all that apply): None applicable Inpatient E&M: 18207 Disch Hosp
== END 2020-06-29 10:32 | disposition home or self-care (01) ==
LOC: ED 17:17 → MS3 06-28 07:07
PROVIDERS: Admitting Provider Internal Medicine; Emergency Provider Emergency Medicine
DX: F11.23 Opioid dependence with withdrawal (principal); F17.210 Nicotine dependence, cigarettes, uncomplicated; M06.9 Rheumatoid arthritis, unspecified; Z79.899 Other long term (current) drug therapy; Z59.0 Homelessness; Z56.0 Unemployment, unspecified; M19.90 Unspecified osteoarthritis, unspecified site; F15.90 Other stimulant use, unspecified, uncomplicated
CPT/HCPCS: 80053; 80307; 80320; 85025; 86703; 86706; 86803; 87340; 97802; 99284; 99406; H0012; A4216; G0480